=== PATIENT | male | born 1990 | race Caucasian/White ===

== ENCOUNTER 2018-08-15 21:18 | Emergency (ER) | payer OTHER ==
[~2018-08-15] VITALS: Ht 170.2 cm; Wt 68.2 kg
[2018-08-15 22:26] VITALS: BP 136/80
== END 2018-08-15 22:34 | disposition home or self-care (01) ==
LOC: EMS 21:20
DX: F41.9 Anxiety disorder, unspecified (principal); F17.210 Nicotine dependence, cigarettes, uncomplicated; R06.02 Shortness of breath; R20.2 Paresthesia of skin; R11.0 Nausea
CPT/HCPCS: 99406